=== PATIENT | male | born 1955 | race Caucasian/White ===

== ENCOUNTER → 2017-12-17 | Outpatient (CLI) | payer OTHER ==
[~2017-12-17] MED LIST: ASPCH81X PO; FISHOIL PO; GABA-1220 PO; GLUC10007 PO; LEVO88TA3 PO; MULTTAB58 PO; NAPR-22 PO; TAMS0.4C38 PO
--- NOTE | 2017-12-17 15:12 | DIAGNOSTIC IMAGING REPORT ---
R KNEE 4 OR MORE VIEWS CLINICAL HISTORY: R KNEE PAIN pain COMPARISON: None. DISCUSSION: The bones and joint spaces appear intact. There is no evidence of fracture, dislocation or bony disease. There is no evidence for soft tissue swelling. IMPRESSION: Negative study. The above report was generated using voice recognition software. It may contain grammatical, syntax or spelling errors. Electronically signed by: Jackson Joy M.D. 12/17/2017 3:10 PM Dictated Date/Time: 12/17/2017 3:10 PM
== END | disposition home or self-care (01) ==
LOC: C.RAD 14:45
PROVIDERS: ATTEND Physician Assistant
DX: M25.561 Pain in right knee (principal)

== ENCOUNTER → 2017-12-29 | Outpatient (CLI) | payer OTHER | END | disposition home or self-care (01) | LOC: C.LABBC 11:38 | PROVIDERS: ATTEND Orthopaedic Surgery | DX: M25.561 Pain in right knee (principal); M25.461 Effusion, right knee ==

== ENCOUNTER 2021-12-31 10:40 | Observation (INO) ==
[2021-12-31] MEDS ORDERED: BUPIVACAINE 0.5 % 5 MG/1 ML MPF 30ML VIAL INFIL ONE (11:09)
[2021-12-31] MEDS ORDERED: cephALEXin 250 MG CAP PO STA (11:09)
--- NOTE | 2021-12-31 11:15 | Emergency Department Note ---
History of Present Illness General Chief complaint: Laceration/Cut (Suture/Dermabond) Stated complaint: CUT ON HAND/FINGERS Time Seen by Provider: 12/31/21 11:01 History of Present Illness Maximum Pain Intensity: 7 This is a [id number] 66-year-old male who presents to the emergency department with a wound to the right little finger that occurred prior to arrival. He was using a log processor when a large log dropped onto the stand, bounced towards his hand and hit his hand into the splitting part of the processor. It was not severely crushed but did hit pretty hard. He is able to bend the finger but felt a pop when flexing the finger. Tetanus shot was updated in 2019 Not immunocompromised. Denies any numbness in the finger. Home Medications Medication Instructions Recorded Confirmed Type gabapentin 400 mg capsule 400 mg PO TID 01/23/18 03/28/19 History glucosamine sulfate 500 mg tablet 500 mg PO BID 01/23/18 03/28/19 History (Glucosamine) levothyroxine 88 mcg capsule 88 mcg PO QAM 01/23/18 03/28/19 History tamsulosin 0.4 mg capsule 0.4 mg PO QAM 01/23/18 03/28/19 History vitamins A,C,Y-fshh-rmnwei 2,148 1 tab PO DAILY 01/23/18 03/28/19 History mcg-113 mg-45 mg-17.4 mg tablet (PreserVision AREDS) tramadol 50 mg tablet 50 mg PO Q6H PRN pain #30 tabs 01/31/18 03/28/19 Rx aspirin 81 mg chewable tablet 81 mg PO QAM 03/06/19 03/28/19 History duloxetine 60 mg capsule,delayed 60 mg PO DAILY 03/28/19 03/28/19 History release (Cymbalta) hydrocodone 5 mg-acetaminophen 325 1 tab PO Q4H PRN pain #5 tabs 03/28/19 Rx mg tablet Allergies Allergy/AdvReac Type Severity Reaction Status Date / Time ioversol Allergy Severe ANAPHYLAXIS Verified 03/28/19 06:33 constrast dye Allergy Unknown ANAPHYLAXIS Uncoded 03/28/19 06:33 Past Med/Surg History Medical History BPH (benign prostatic hyperplasia) Hx of skin cancer, basal cell Hypothyroidism Neck pain Osteoarthritis Peripheral neuropathy bilateral feet Surgical History History of arthroscopy RT SHOULDER REPAIR History of colonoscopy History of left knee surgery Hx of meniscectomy of right knee Status post Mohs surgery Family History Father Family history of diabetes mellitus FHx: lung cancer Social History Smoking Status: Never smoker Second Hand Exposure: No; Hx Alcohol Use: No Hx Substance Use: No Preferred Language: Turkish Communication Ability: Effective 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 and A total of 6 systems reviewed and were otherwise negative Physical Exam Vital Signs Vital Signs - 24 hr 12/31/21 10:46 12/31/21 12:40 12/31/21 14:15 Temperature 36.5 C Temperature Source Temporal Artery Scan Pulse Rate 78 Pulse Rate [Apical] Pulse Rate [Finger] 59 L 55 L Pulse Rhythm [Apical] Pulse Rhythm [Finger] Pulse Strength [Apical] Pulse Strength [Finger] Respiratory Rate 20 12 14 Respiratory Effort / Characteristics Non-Labored Respiratory Depth Normal Respiratory Pattern Blood Pressure 136/76 Blood Pressure [Left Arm] 137/81 155/85 H Blood Pressure Mean 96 Blood Pressure Mean [Left Arm] 99 108 Blood Pressure Position [Left Arm] Pulse Oximetry 96 98 99 Oxygen Delivery Method Room Air Room Air Room Air Oxygen Flow Rate Sepsis Recent Fever Within 48 Hours No Sepsis New/Unexplained Change in Mental Status N/A Sepsis Action Taken by Nursing No Action Required 12/31/21 15:02 12/31/21 18:16 Temperature 36.5 C 36.4 C L Temperature Source Oral Temporal Artery Scan Pulse Rate Pulse Rate [Apical] 58 L Pulse Rate [Finger] 56 L Pulse Rhythm [Apical] Regular Pulse Rhythm [Finger] Regular Pulse Strength [Apical] Normal Pulse Strength [Finger] Normal Respiratory Rate 18 20 Respiratory Effort / Characteristics Non-Labored Spontaneous Non-Labored Spontaneous Respiratory Depth Normal Normal Respiratory Pattern Regular Regular Blood Pressure Blood Pressure [Left Arm] 154/90 H 112/70 Blood Pressure Mean Blood Pressure Mean [Left Arm] 111 84 Blood Pressure Position [Left Arm] Sitting Lying Pulse Oximetry 99 96 Oxygen Delivery Method Room Air Oxymask Oxygen Flow Rate 5 Sepsis Recent Fever Within 48 Hours Sepsis New/Unexplained Change in Mental Status Sepsis Action Taken by Nursing CONSTITUTIONAL: Well developed, well nourished, in no acute distress. HEAD: Normocephalic, atraumatic. EYES: Extraocular movements intact, conjunctival normal NECK: Full active range of motion. RESPIRATORY: Breathing unlabored and symmetric. CARDIOVASCULAR: Radial pulses 2+ bilaterally MUSCULOSKELETAL: Right little finger: Extensive laceration over the dorsum of the finger specifically within the middle phalanx region. Extensor tendon is lacerated. There is crepitus appreciated within the middle phalanx concerning for fracture. There is slight deformity in this region. Patient unable to extend the finger. SKIN: [place], warm, dry. Capillary refill less than 2 seconds in right little finger NEUROLOGIC: Alert and oriented x 3. No acute motor or sensory deficits in bilateral little fingers to light touch. PSYCHIATRIC: Appropriate. Normal affect. Course Administered Medications Aspirin (Aspirin 81 Mg Chew) 81 mg PO QAM [facility] Stop: 01/31/22 08:59 Last Admin: 01/01/22 07:41 Dose: Not Given Documented By: ANNETTE Duloxetine HCl (Duloxetine Hcl 60 Mg Cap) 60 mg PO DAILY [facility] Stop: 01/31/22 08:59 Last Admin: 01/01/22 07:40 Dose: Not Given Documented By: ANNETTE Gabapentin (Gabapentin 400 Mg Cap) 400 mg PO TID [facility] Stop: 01/30/22 20:59 Last Admin: 01/01/22 07:38 Dose: 400 mg Documented By: Admin: 12/31/21 21:32 Dose: 400 mg Documented By: LEO Glucosamine Sulfate (Glucosamine Sulfate 500 Mg Cap) 500 mg PO BID [facility] Stop: 01/30/22 20:59 Last Admin: 01/01/22 07:40 Dose: Not Given Documented By: Admin: 12/31/21 21:32 Dose: 500 mg Documented By: LEO Cefazolin Sodium (Ancef 2000mg) 2,000 mg in 15 mls @ 3.75 mls/min IV Q8H [facility]; Protocol Stop: 01/01/22 21:29 Last Admin: 01/01/22 06:09 Dose: 3.75 mls/min Documented By: Admin: 12/31/21 21:31 Dose: 3.75 mls/min Documented By: LEO Levothyroxine Sodium (Levothyroxine Sodium 88 Mcg Tablet) 88 mcg PO DAILYBB MARIA LUISA Stop: 01/31/22 06:29 Last Admin: 01/01/22 06:10 Dose: 88 mcg Documented By: LEO Multivitamins/Minerals (Cerovite Adv Formula Tab) 1 tab PO DAILY MARIA LUISA Stop: 01/31/22 08:59 Last Admin: 01/01/22 07:38 Dose: 1 tab Documented By: ANNETTE Tamsulosin HCl (Tamsulosin Hcl 0.4 Mg Cap) 0.4 mg PO QAM [facility] Stop: 01/31/22 08:59 Last Admin: 01/01/22 07:39 Dose: 0.4 mg Documented By: ANNETTE Tramadol HCl (Tramadol Hcl 50 Mg Tablet) 50 mg PO Q6H PRN PRN Reason: pain Stop: 01/30/22 18:24 Last Admin: 01/01/22 06:09 Dose: 50 mg Documented By: LEO Discontinued Medications Bacitracin (Bacitracin Oint 15 Gm Tube) Confirm Administered Dose 45 appln .ROUTE .STK-MED ONE Stop: 12/31/21 17:54 Last Admin: 12/31/21 17:59 Dose: 45 appln Documented By: MISA Bupivacaine HCl (Bupivacaine 0.5 % 5 Mg/1 Ml Mpf 30ml Vial) 30 ml INFIL NOW ONE Stop: 12/31/21 11:10 Last Admin: 12/31/21 11:14 Dose: 30 ml Documented By: [id number] Cephalexin HCl (Cephalexin 250 Mg Cap) 500 mg PO NOW STA Stop: 12/31/21 11:10 Last Admin: 12/31/21 11:14 Dose: 500 mg Documented By: ALFRED Diphtheria/Pertussis/Tetanus Vacc (Diphtheria/Tetanus/Pertussis 0.5 Ml Syr/Vial) 0.5 ml IM .ONCE ONE Stop: 12/31/21 12:51 Last Admin: 12/31/21 13:14 Dose: Not Given Documented By: ALFRED Cefazolin Sodium (Ancef 2000mg) 2,000 mg in 15 mls @ 3.75 mls/min IV NOW STA Stop: 12/31/21 12:53 Last Admin: 12/31/21 13:08 Dose: 3.75 mls/min Documented By: ALRFED Lidocaine/Epinephrine (Lidocaine 1%/Epinephrine 1:100,000 50 Ml Vial) Confirm Administered Dose 50 ml .ROUTE .STK-MED ONE Stop: 12/31/21 16:23 Last Admin: 12/31/21 17:59 Dose: 9 ml Documented By: MISA Medical Decision Making Differential Diagnosis Fracture, dislocation, subluxation, laceration, foreign body, tendon injury, neurovascular injury, among other pathology Medical Records Attestation: I reviewed the patient's medical records. Laboratory Data Result diagrams: 12/31/21 13:00 12/31/21 13:00 Lab Results 12/31/21 12/31/21 12/31/21 Range/Units 13:00 13:00 13:00 WBC 7.22 (4.8-10.8) K/ul RBC 4.63 (4.63-6.08) M/uL Hgb 13.7 L (14.0-18.0) g/dl Hct 41.0 (40.1-51.0) % MCV 88.6 (80.0-100.0) fL MCH 29.6 (25.0-34.0) pg MCHC 33.4 (32.0-36.0) g/dL RDW Std Deviation 40.6 (36.4-46.3) fL RDW Coeff of Narda 12.5 (11.5-14.5) % Plt Count 181 (130-400) K/uL MPV 9.4 (9.4-12.4) fL Immature Gran % (Auto) 0.3 % Neut % (Auto) 76.8 % Lymph % (Auto) 15.4 % [place] % (Auto) 6.2 % Eos % (Auto) 0.7 % Baso % (Auto) 0.6 % Neut # (Auto) 5.55 (1.4-6.5) K/uL Lymph # (Auto) 1.11 L (1.2-3.4) K/uL [place] # (Auto) 0.45 (0.24-0.82) K/uL Eos # (Auto) 0.05 (0-0.50) K/uL Baso # (Auto) 0.04 (0-0.2) K/uL Immature Gran # (Auto) 0.02 (0.00-0.02) K/uL Sodium 141 (136-145) mmol/L Potassium 4.2 (3.5-5.1) mmol/L Chloride 108 H (98-107) mmol/L Carbon Dioxide 26 (21-32) mmol/L Anion Gap 7 (3-11) BUN 19 (6-23) mg/dl Creatinine 0.86 (0.6-1.4) mg/dl Est Cr Clr Drug Dosing 87.6 ml/min Est GFR ( Amer) 103.3 ml/min Est GFR (Non-Af Amer) 89.1 ml/min BUN/Creatinine Ratio 22.1 H (10-20) Glucose 91 (70-99(Fasting)) mg/dl Calcium 9.3 (8.5-10.1) mg/dl SARS-CoV-2, RNA, NAAT NEGATIVE (NEGATIVE) Imaging Data Attestation: I personally reviewed and interpreted this imaging study as follows: My Impression: I agree with the radiologist's interpretation Radiologist's Impression: Finger X-Ray 12/31/21 00:00 FL finger RT 2V CLINICAL HISTORY: RIGHT 5TH digit fracture with internal fixation COMPARISON STUDY: 12/31/2021. FLUOROSCOPY TIME: . FINDINGS: 2 fluoroscopic spot images of the right fifth finger demonstrates internal fixation of the middle phalangeal fracture with 2 pins. Alignment appears near-anatomic. IMPRESSION: Fluoroscopic assistance provided for internal fixation of the right fifth finger middle phalanx fracture. ACT 112: Negative or not required by law. Electronically signed by: Marcus Coello M.D. 12/31/2021 7:43 PM Finger X-Ray 12/31/21 11:09 XR finger(s) RT min 2V CLINICAL HISTORY: little finger injury with laceration TECHNIQUE: 3 views of the right fifth digit were obtained. Comparison: Comparison is made to right hand radiographs 01/15/2019 FINDINGS: Comminuted fracture of the middle phalanx of the fifth digit. There is a linear radiodensity in the fourth digit which is unchanged from prior exam, may represent chronic foreign body. No new foreign bodies are seen. Soft tissue swelling is seen about the digit. IMPRESSION: Comminuted fractures of the middle phalanx of the fifth digit with associated soft tissue swelling. ACT 112: Negative or not required by law. Electronically signed by: Mani Bojorquez M.D. 12/31/2021 12:13 PM MDM Narrative 66-year-old male presents with a significant wound to the right little finger that occurred while using a firewood processor as described above. Physical exam reveals an extensive laceration over the dorsum of the little finger, extensor tendon is lacerated, crepitus concerning for fracture. Sensat ion is intact to light touch. Tdap confirmed updated in 2019. Patient initially given a dose of Tylenol and oral Keflex. X-ray of the little finger demonstrates a comminuted fracture of the middle ph alanx. This is an open fracture. Case was discussed with Dr. Mccall (orthopedics) who evaluated the patient at bedside and will take the patient to the OR for surgical repair. Basic labs were obtained, IV Ancef was administered. Labs overall no acute findings. Patient remained hemodynamically stable in the emergency department until being transferred to the OR. Attending Attestation: Viviane Khan MD independently saw and evaluated this patient and agree with history and physical is otherwise documented by the physician speech assistant. See their note for full details. Patient resting in bed with bandaging on finger pain now controlled. Given xr eval by ortho for further eval and clean out with open wound. Impression & Plan Open fracture of middle phalanx of left little finger, Extensor tendon laceration of finger with open wound Discharge Plan Visit Data Chief Complaint: Laceration/Cut (Suture/Dermabond) Stated Complaint: CUT ON HAND/FINGERS ED Provider: Elio Khan ED Midlevel Provider: Kvng Richey Discharge Problem: Open fracture of middle phalanx of left little finger, Extensor tendon la ceration of finger with open wound Patient Disposition: Admitted As Inpatient Discharge Instructions Interventions: ED Discharge Assessment Last Done: 12/31/21 14:41
--- NOTE | 2021-12-31 12:14 | XRay Report ---
XR finger(s) RT min 2V CLINICAL HISTORY: little finger injury with laceration TECHNIQUE: 3 views of the right fifth digit were obtained. Comparison: Comparison is made to right hand radiographs 01/15/2019 FINDINGS: Comminuted fracture of the middle phalanx of the fifth digit. There is a linear radiodensity in the f ourth digit which is unchanged from prior exam, may represent chronic foreign body. No new foreign humberto dies are seen. Soft tissue swelling is seen about the digit. IMPRESSION: Comminuted fractures of the middle phalanx of the fifth digit with associated soft tissue swelling. ACT 112: Negative or not required by law. Electronically signed by: Mani Bojorquez M.D. 12/31/2021 12:13 PM
[2021-12-31] MEDS ORDERED: DIPHTHERIA/TETANUS/PERTUSSIS 0.5 ML SYR/VIAL IM ONE (12:50)
[2021-12-31] MEDS ORDERED: ceFAZolin 2000MG 2,000 MG/15 ML SYR IV STA (12:50)
[2021-12-31 13:17] LABS: Basophils # (auto) 0.04 K/uL (0-0.2); Basophils % (auto) 0.6 %; Eosinophils # (auto) 0.05 K/uL (0-0.50); Eosinophils % (auto) 0.7 %; Hemoglobin 13.7 g/dl (14.0-18.0); Immature Granulocytes # (auto) 0.02 K/uL (0.00-0.02); Immature Granulocytes % (auto) 0.3 %; Lymphocytes # (auto) 1.11 K/uL (1.2-3.4); Lymphocytes % (auto) 15.4 %; Mean Corpuscular Hemoglobin 29.6 pg (25.0-34.0); Mean Corpuscular Hgb Conc 33.4 g/dL (32.0-36.0); Mean Corpuscular Volume 88.6 fL (80.0-100.0); Mean Platelet Volume 9.4 fL (9.4-12.4); Monocytes # (auto) 0.45 K/uL (0.24-0.82); Monocytes % (auto) 6.2 %; Neutrophils # (auto) 5.55 K/uL (1.4-6.5); Neutrophils % (auto) 76.8 %; Platelet Count 181 K/uL (130-400); RDW Coefficient of Variation 12.5 % (11.5-14.5); RDW Standard Deviation 40.6 fL (36.4-46.3); Red Blood Count 4.63 M/uL (4.63-6.08); White Blood Count 7.22 K/ul (4.8-10.8)
[2021-12-31 13:44] LABS: BUN Creatinine Ratio 22.1 (10-20); Calcium 9.3 mg/dl (8.5-10.1); Creatinine Clr Calc Pharmacy 87.6 ml/min; Est GFR (African American) 103.3 ml/min; Est GFR (Non-African American) 89.1 ml/min; Potassium 4.2 mmol/L (3.5-5.1)
--- NOTE | 2021-12-31 14:01 | History & Physical Report ---
Date of Service December 31, 2021 Assessment & Plan (1) Open fracture of middle phalanx of left little finger: Plan: Findings are discussed. He has an open fracture of the finger. Grade 2 by size. It has been almost 4 hours since injury. He has received antibiotics. His tetanus is up-to-date. We talked about options and I recommended irrigation debridement and stabilization of the fracture and repair of extensor tight tendon if necessary. This would be followed by IV antibiotics and discharged home. Pins will stay in place 3 to 6 weeks. We talked about risks benefits rehab recovery. There is a risk of infection and a significant risk of stiffness. I also mentioned to him the possibility of an amputation as a primary treatment which I think is not necessary. Continue NPO. We will get him into the OR soon as possible. Present on Admission?: Yes History of Present Illness Primary Care Provider: Edward Montes is 66 years old. He was splitting wood. A log rolled over and pinched his finger against the splitting apparatus. This happened about 10 AM. Right little finger. He came to the ER. He was diagnosed with a open fracture and I was consulted to see him. I ordered a dose of Ancef. His tetanus is within the last 5 years.No other injury noted. No prior history of injury to the same hand. Allergies Allergy/AdvReac Type Severity Reaction Status Date / Time ioversol Allergy Severe ANAPHYLAXIS Verified 03/28/19 06:33 constrast dye Allergy Unknown ANAPHYLAXIS Uncoded 03/28/19 06:33 Home Medications Medication Instructions Recorded Confirmed Type gabapentin 400 mg capsule 400 mg PO TID 01/23/18 03/28/19 History glucosamine sulfate 500 mg tablet 500 mg PO BID 01/23/18 03/28/19 History (Glucosamine) levothyroxine 88 mcg capsule 88 mcg PO QAM 01/23/18 03/28/19 History tamsulosin 0.4 mg capsule 0.4 mg PO QAM 01/23/18 03/28/19 History vitamins A,C,M-btln-ptdgsr 2,148 1 tab PO DAILY 01/23/18 03/28/19 History mcg-113 mg-45 mg-17.4 mg tablet (PreserVision AREDS) tramadol 50 mg tablet 50 mg PO Q6H PRN pain #30 tabs 09/19/18 11/14/19 Rx aspirin 81 mg chewable tablet 81 mg PO QAM 03/06/19 03/28/19 History duloxetine 60 mg capsule,delayed 60 mg PO DAILY 03/28/19 03/28/19 History release (Cymbalta) hydrocodone 5 mg-acetaminophen 325 1 tab PO Q4H PRN pain #5 tabs 03/28/19 Rx mg tablet Past Med/Surg History Medical History (Updated 12/31/21 @ 13:51 by Cabrera Thao) BPH (benign prostatic hyperplasia) Hx of skin cancer, basal cell Hypothyroidism Neck pain Osteoarthritis Peripheral neuropathy bilateral feet Surgical History History of arthroscopy RT SHOULDER REPAIR History of colonoscopy History of left knee surgery Hx of meniscectomy of right knee Status post Mohs surgery Family History Father Family history of diabetes mellitus FHx: lung cancer Social History Smoking Status: Never smoker Second Hand Exposure: No; Hx Alcohol Use: No Hx Substance Use: No Preferred Language: Latvian Communication Ability: Effective 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 He does not have cancer or diabetes. Physical Exam Physical Exam: Heart is regular in rate and rhythm without murmur. The chest is clear to auscultation bilaterally. Examination of the right little finger reveals a 3 to 4 cm laceration which begins dorsally over the middle phalanx and proceeds distally and ulnarly as well as palmarly to that side of the digit. The finger is deformed there is exposed bone and tendon with blood clot. He has been previously anesthetized but reports that his sensation was intact prior to the anesthesia. Capillary refills less than 2 seconds. He cannot extend the digit but it appears to have intact long flexor function. Flexor superficialis function appears to be intact. The finger is unstable. Results & Data Results & Data ([facility]) Vital Signs (Past 12 Hours) Vital Signs Temp Pulse Pulse Resp BP BP Pulse Ox 12/31/21 12:40 59 L 12 137/81 98 12/31/21 10:46 36.5 C 78 20 136/76 96 O2 Del Method 12/31/21 12:40 Room Air 12/31/21 10:46 Room Air Laboratory Results Laboratory Results WBC 7.22 K/ul (4.8-10.8) 12/31/21 13:00 RBC 4.63 M/uL (4.63-6.08) 12/31/21 13:00 Hgb 13.7 g/dl (14.0-18.0) L 12/31/21 13:00 Hct 41.0 % (40.1-51.0) 12/31/21 13:00 MCV 88.6 fL (80.0-100.0) 12/31/21 13:00 MCH 29.6 pg (25.0-34.0) 12/31/21 13:00 MCHC 33.4 g/dL (32.0-36.0) 12/31/21 13:00 RDW Std Deviation 40.6 fL (36.4-46.3) 12/31/21 13:00 RDW Coeff of Narda 12.5 % (11.5-14.5) 12/31/21 13:00 Plt Count 181 K/uL (130-400) 12/31/21 13:00 MPV 9.4 fL (9.4-12.4) 12/31/21 13:00 Immature Gran % (Auto) 0.3 % 12/31/21 13:00 Neut % (Auto) 76.8 % 12/31/21 13:00 Lymph % (Auto) 15.4 % 12/31/21 13:00 [place] % (Auto) 6.2 % 12/31/21 13:00 Eos % (Auto) 0.7 % 12/31/21 13:00 Baso % (Auto) 0.6 % 12/31/21 13:00 Neut # (Auto) 5.55 K/uL (1.4-6.5) 12/31/21 13:00 Lymph # (Auto) 1.11 K/uL (1.2-3.4) L 12/31/21 13:00 [place] # (Auto) 0.45 K/uL (0.24-0.82) 12/31/21 13:00 Eos # (Auto) 0.05 K/uL (0-0.50) 12/31/21 13:00 Baso # (Auto) 0.04 K/uL (0-0.2) 12/31/21 13:00 Immature Gran # (Auto) 0.02 K/uL (0.00-0.02) 12/31/21 13:00 Sodium 141 mmol/L (136-145) 12/31/21 13:00 Potassium 4.2 mmol/L (3.5-5.1) 12/31/21 13:00 Chloride 108 mmol/L (98-107) H 12/31/21 13:00 Carbon Dioxide 26 mmol/L (21-32) 12/31/21 13:00 Anion Gap 7 (3-11) 12/31/21 13:00 BUN 19 mg/dl (6-23) 12/31/21 13:00 Creatinine 0.86 mg/dl (0.6-1.4) 12/31/21 13:00 Est Cr Clr Drug Dosing 87.6 ml/min 12/31/21 13:00 Est GFR ( Amer) 103.3 ml/min 12/31/21 13:00 Est GFR (Non-Af Amer) 89.1 ml/min 12/31/21 13:00 BUN/Creatinine Ratio 22.1 (10-20) H 12/31/21 13:00 Glucose 91 mg/dl (70-99(Fasting)) 12/31/21 13:00 Calcium 9.3 mg/dl (8.5-10.1) 12/31/21 13:00 SARS-CoV-2, RNA, NAAT NEGATIVE (NEGATIVE) 12/31/21 13:00 Impressions Finger X-Ray 12/31/21 11:09 XR finger(s) RT min 2V CLINICAL HISTORY: little finger injury with laceration TECHNIQUE: 3 views of the right fifth digit were obtained. Comparison: Comparison is made to right hand radiographs 01/15/2019 FINDINGS: Comminuted fracture of the middle phalanx of the fifth digit. There is a linear radiodensity in the fourth digit which is unchanged from prior exam, may represent chronic foreign body. No new foreign bodies are seen. Soft tissue sw elling is seen about the digit. IMPRESSION: Comminuted fractures of the middle phalanx of the fifth digit with associated soft tissue swelling. ACT 112: Negative or not required by law. Electronically signed by: Mani Bojorquez M.D. 12/31/2021 12:13 PM Code Status & VTE Plan VTE Prophylaxis Plan Reason for no VTE drug order: Treatment not indicated
--- NOTE | 2021-12-31 14:40 | Electrocardiogram Report ---
Test Reason : Blood Pressure : / mmHG Vent. Rate : 054 BPM Atrial Rate : 054 BPM P-R Int : 122 ms QRS Dur : 096 ms QT Int : 458 ms P-R-T Axes : 034 -09 009 degrees QTc Int : 434 ms Sinus bradycardia Incomplete right bundle branch block Borderline ECG When compared with ECG of 22-JAN-2018 10:31, Incomplete right bundle branch block is now Present Confirmed by Federico Raman ([id number]) on 12/31/2021 2:39:56 PM Referred By: REFERRED SELF Confirmed By:Federico Raman
--- NOTE | 2021-12-31 15:14 | Anesthesiology Consultation ---
Date of Service December 31, 2021 Assessment & Plan (1) Encounter for pre-operative examination: Chart Review Chart Review: Acceptable Risk for Surgery Consults Requested none ASA ASA2E Proposed Anesthesia Anesthesia Type: MAC Risk / Benefits Reviewed With: PT / POA / Parent / Guardian, Accepts Plan and Informed Consent Obtained History Surgery Operation Date: 12/31/21 16:35 Proposed Procedures p Incision and Drainage Right Hand Lupe Mccall MD s Pinning of Right Hand Lupe Mccall MD Height/Weight Height: 5 ft 11 in Weight: 86.3 kg Allergies Allergy/AdvReac Type Severity Reaction Status Date / Time ioversol Allergy Severe ANAPHYLAXIS Verified 03/28/19 06:33 constrast dye Allergy Unknown ANAPHYLAXIS Uncoded 03/28/19 06:33 Medications Home Medications Medication Instructions Recorded Confirmed Last Taken gabapentin 400 mg capsule 400 mg PO TID 01/23/18 03/28/19 03/27/19 glucosamine sulfate 500 mg tablet 500 mg PO BID 01/23/18 03/28/19 03/27/19 (Glucosamine) levothyroxine 88 mcg capsule 88 mcg PO QAM 01/23/18 03/28/19 03/28/19 01:30 tamsulosin 0.4 mg capsule 0.4 mg PO QAM 01/23/18 03/28/19 03/28/19 05:00 vitamins A,C,P-nrms-mdklpw 2,148 1 tab PO DAILY 01/23/18 03/28/19 03/27/19 mcg-113 mg-45 mg-17.4 mg tablet (PreserVision AREDS) tramadol 50 mg tablet 50 mg PO Q6H PRN pain #30 tabs 01/31/18 03/28/19 Unknown aspirin 81 mg chewable tablet 81 mg PO QAM 03/06/19 03/28/19 03/26/19 duloxetine 60 mg capsule,delayed 60 mg PO DAILY 03/28/19 03/28/19 03/27/19 release (Cymbalta) hydrocodone 5 mg-acetaminophen 325 1 tab PO Q4H PRN pain #5 tabs 03/28/19 Unknown mg tablet NPO Date Last Intake of Fluids: 12/31/21 Time Last Intake of Fluids: 07:00 Date Last Intake of Solids: 12/31/21 Time Last Intake of Solids: 00:00 Past Medical History Medical History BPH (benign prostatic hyperplasia) Hx of skin cancer, basal cell Hypothyroidism Neck pain Osteoarthritis Peripheral neuropathy bilateral feet Exercise / Class Metabolic Activity II 4-5 Yardwork/Stairs/Walk up hill Past Family History Family History Father Family history of diabetes mellitus FHx: lung cancer Past Surgical History Surgical History History of arthroscopy RT SHOULDER REPAIR History of colonoscopy History of left knee surgery Hx of meniscectomy of right knee Status post Mohs surgery Past Anesthesia History No Hx of Anesthesia Complications and No Family Hx of Anesthesia Complications History of PONV No Hx of PONV and No Hx of Motion Sickness Social History Smoking Status: Never smoker Hx Alcohol Use: No Hx Substance Use: No substance use type: does not use Physical Exam Vital Signs Last Vital Signs Temp 97.7 F 12/31/21 10:46 Pulse 55 L 12/31/21 14:15 Resp 14 12/31/21 14:15 BP 155/85 H 12/31/21 14:15 Pulse Ox 99 12/31/21 14:15 O2 Del Method 12/31/21 14:15 ENMT Mouth: no dentition abnormality Thyromental Distance: > or= 3.5 Finger Breadths Mallampati Class: II Neck normal visual inspection Respiratory normal respiratory effort Auscultation: lungs clear to auscultation bilaterally Cardiovascular Rate/Rhythm: regular rate and regular rhythm Testing Laboratory Results 12/31/21 13:00 12/31/21 13:00 Electrocardiogram Date: 12/31/21 Findings: + SB @ (54 bpm) Chest X-Ray Incomplete RBBB
[2021-12-31] MEDS ORDERED: fentaNYL citrate 100 MCG/2 ML VIAL ONE (16:09)
[2021-12-31] MEDS ORDERED: PROPOFOL IV EMULSION 10 MG/ML 20 ML VIAL IV ONE ×2 (16:09→16:56)
[2021-12-31] MEDS ORDERED: ONDANSETRON INJ 2 MG/ML 2 ML VIAL ONE (16:09)
[2021-12-31] MEDS ORDERED: MIDAZOLAM HCL 1 MG/ML 2ML VIAL ONE (16:09)
[2021-12-31] MEDS ORDERED: LIDOCAINE 2% MPF LOCAL 5 ML VIAL INFIL ONE (16:09)
[2021-12-31] MEDS ORDERED: LIDOCAINE 1%/EPINEPHRINE 1:100,000 50 ML VIAL ONE (16:22)
[2021-12-31] MEDS ORDERED: ePHEDrine sulfate 50 MG/ML SYR ONE (16:56)
[2021-12-31] MEDS ORDERED: BACITRACIN OINT 15 GM TUBE ONE (17:53)
[2021-12-31] MEDS ORDERED: oxyCODONE/ACETAMINOPHEN 5mg/325mg TAB PO PRN (18:18)
[2021-12-31] MEDS ORDERED: ONDANSETRON INJ 2 MG/ML 2 ML VIAL IV PRN (18:18)
--- NOTE | 2021-12-31 18:18 | Operative Report ---
Post Operative Report Pre & Post Diagnosis Operation Date: 12/31/21 16:35 Pre-Op Diagnosis: Grade 2 open fracture of right little finger middle phalynx extensor tendon laceration Post-Op Diagnosis: Grade 2 open fracture of right little finger middle phalynx extensor tendon laceration I identified the patient and participated in the time-out.: Yes Procedure Operation Date: 12/31/21 16:35 Actual Procedures p Incision and Drainage Right Hand Little Finger(Right) - Rupert Mccall MD s Pinning of Right Hand Little Finger(Right) - Rupert Mccall MD Surgeon Rupert Mccall MD Engineering Scientist Elaina Solomon PA-C; Annalise Clements PA-C Estimated Blood Loss 1 Findings Consistent with Post-Op Diagnosis Specimens none Description of Procedure I was present for a majority of the case assisting with wound retraction, wound closure, dressing and splint application. No fellow present. Please see Dr. Mccall procedure note for specifics of the case. I attest to the content of the Intraoperative Record and any orders documented therein. Any exceptions are noted below.
--- NOTE | 2021-12-31 18:19 | Anesthesiology Progress Note ---
Date of Service December 31, 2021 Anesthesia Post Procedure Vital Signs Vital Signs: Temp Pulse Pulse Resp BP BP Pulse Ox 12/31/21 15:02 97.7 F 56 L 18 154/90 H 99 12/31/21 14:15 55 L 14 155/85 H 99 12/31/21 12:40 59 L 12 137/81 98 12/31/21 10:46 97.7 F 78 20 136/76 96 O2 Del Method 12/31/21 15:02 Room Air 12/31/21 14:15 Room Air 12/31/21 12:40 Room Air 12/31/21 10:46 Room Air Pain Intensity Right 5th Digit: Pain Intensity: 5 Transfer of Care Handoff Completed per policy Notes Mental Status: alert / awake / arousable and participated in evaluation Patient Amnestic to Procedure: Yes Nausea / Vomiting: adequately controlled Pain: adequately controlled Airway Patency, RR, SpO2: stable & adequate BP & HR: stable & adequate Hydration State: stable & adequate Anesthetic Complications: no major complications apparent and Pt Satisfied with anesthetic care
[2021-12-31] MEDS ORDERED: SODIUM CHLORIDE 0.9% 1000ML 1,000 ML IV SCH (18:30)
--- NOTE | 2021-12-31 18:32 | Operative Report ---
Post Operative Report Pre & Post Diagnosis Operation Date: 12/31/21 16:35 Pre-Op Diagnosis: Grade 2 open fracture of right little finger middle phalynx extensor tendon laceration Post-Op Diagnosis: Grade 2 open fracture of right little finger middle phalynx extensor tendon laceration I identified the patient and participated in the time-out.: Yes Procedure Operation Date: 12/31/21 16:35 Actual Procedures p Incision and Drainage Right Hand Little Finger(Right) - Rupert Mccall MD s Pinning of Right Hand Little Finger(Right) - Rupert Mccall MD Surgeon Rupert Mccall MD Sap Hana Architect Elaina Solomon PA-C; Annalise Clements PA-C Estimated Blood Loss 1 Findings Consistent with Post-Op Diagnosis Specimens none Anesthesia Type MAC Regional Complications none Disposition Accompanied Patient To Recovery: No Disposition: Recovery Room Indications Patient is 66 years old. He injured his right little finger when it was crushed by a log against a log splitter when the log fell. He has a grade 2 open fracture of the middle phalanx on the right little finger with comminution. The extensor tendon is likely damaged as well. I recommended I&D repair stabilization. Description of Procedure Informed consent obtained. Patient identified. He identified the operative site as the right little finger. I marked with my initials. A preoperative surgical timeout was performed. Preop dose of IV antibiotics given. He was taken to the operating room positioned supine on the OR table with the right arm on a hand table. He received a preop dose of intravenous antibiotics. A tourniquet was applied to the right arm but not inflated. The finger was prescribed with Betadine. The fingernails were cleaned as best as possible and then the arm up to the elbow was prepped with Betadine. 1% lidocaine with epinephrine with epinephrine was injected for digital block. DVT prophylaxis with mechanical devices intraoperatively and postop early mobility. There was a laceration on the palmar aspect of the finger mid radial line palmarly about 1 to 1-1/2 cm long this was longitudinal there was a intact 1 cm skin bridge and then the other laceration began. This was all irrigated thoroughly with 2 L of sterile saline including the fracture site. There were a few specks of dirt which were removed. The longitudinal laceration was repaired with 204 0 nylon sutures. The main laceration began on the palmar surface 1 around ulnarly at the level of the DIP joint and then Jeferson coursed proximally to the midportion of the phalanx. This was about 4 cm in length. There was some epidermal loss over 1-1/2 x 1 cm along the wound margin distally. Immediately upon opening up the wound it was noted there were 2 free spicules of bone which came from the radial aspect of the proximal fracture fragment. The bone was copiously irrigated as mentioned previously and debrided. I then took a point 03 5 inch K wire. Cut in half. I passed 1 portion from proximal radial to ulnar distal through the distal fragment. And another 1 distal ulnar to proximal radial through the proximal fracture fragment. I then was able to realign the fracture there was some volar comminution present as well on the ulnar side. I was able to get good dorsal and volar apposition. The pins were then passed into the opposite fragment and both pins were then brought out distally. Fluoroscopic guidance was utilized and the pins were parked just inside the body of the proximal portion of the middle phalanx. The flexor tendon was noted and found to be intact. There was a comminution of the proximal fragment volarly. This was in situ and had micromotion. A thin small fragment which would be difficult to fixate. I left it in situ and it remained there throughout the procedure. The comminution of the distal fragment was left in as is as it had soft tissue attachments whereas the other comminuted pieces did not have soft tissue attachment. The fracture was well reduced and stable. There was no rotation or angulation and the radiograph showed good positioning of the fracture and the hardware. The extensor tendon was macerated. Frayed like a horses tail on either side. The distal portion was just underneath the laceration. There was a 2 to 3 mm gap in the tendon. A direct repair was likely not possible given the tissue quality. I then went ahead and took some big bites incorporating the tendon tissue into the skin both proximally and distally x3 and repaired at that way as best as possible. The remainder of the laceration was repaired with interrupted 4-0 nylon sutures in a simple fashion. The pins were cut outside the skin and Jurgan balls were applied. Antibiotic ointment Xeroform gauze and a AlumaFoam finger splint. Patient wake from anesthesia without difficulty taken to the recovery room stable condition. He received sedation during the procedure as well as local. Counts were correct. Blood loss was 1 cc. At the conclusion the operation spoke with patient's informed her of findings. Postop instructions were given. Plan is to admit to the hospital and administer intravenous antibiotics Ancef 1 to 2 g IV every 8 x24 hours. Pain control. Thereafter will reassess and consider discharge. I attest to the content of the Intraoperative Record and any orders documented therein. Any exceptions are noted below.
--- NOTE | 2021-12-31 19:44 | Fluoroscopy Report ---
FL finger RT 2V CLINICAL HISTORY: RIGHT 5TH digit fracture with internal fixation COMPARISON STUDY: 12/31/2021. FLUOROSCOPY TIME: . FINDINGS: 2 fluoroscopic spot images of the right fifth finger demonstrates internal fixation of the middle phalangeal fracture with 2 pins. Alignment appears near-anatomic. IMPRESSION: Fluoroscopic assistance provided for internal fixation of the right fifth finger middle p halanx fracture. ACT 112: Negative or not required by law. Electronically signed by: Marcus Coello M.D. 12/31/2021 7:43 PM
[2021-12-31] MEDS ORDERED: Nursing to Pharmacy Communication SCH (21:15)
[2021-12-31] MEDS: ceFAZolin 2000MG 2,000 MG/15 ML SYR IV SCH (21:31)
[2021-12-31] MEDS: GABAPENTIN 400 MG CAP PO SCH (21:32)
[2021-12-31] MEDS: GLUCOSAMINE SULFATE 500 MG CAP PO SCH (21:32)
[2022-01-01] MEDS: traMADol HCL 50 MG TABLET PO PRN ×2 (06:09→12:11)
[2022-01-01] MEDS: ceFAZolin 2000MG 2,000 MG/15 ML SYR IV SCH ×2 (06:09→13:44)
[2022-01-01] MEDS ORDERED: LEVOTHYROXINE SODIUM 88 MCG TABLET PO SCH (06:30)
[2022-01-01] MEDS: GABAPENTIN 400 MG CAP PO SCH ×2 (07:38→13:44)
[2022-01-01] MEDS: GLUCOSAMINE SULFATE 500 MG CAP PO SCH (07:40)
[2022-01-01] MEDS ORDERED: CEROVITE ADV FORMULA TAB PO SCH (09:00)
[2022-01-01] MEDS ORDERED: ASPIRIN 81 MG CHEW PO SCH (09:00)
[2022-01-01] MEDS ORDERED: TAMSULOSIN HCL 0.4 MG CAP PO SCH (09:00)
[2022-01-01] MEDS ORDERED: DULoxetine HCL 60 MG CAP PO SCH (09:00)
--- NOTE | 2022-01-01 14:18 | Discharge Summary (DS) ---
DATE OF ADMISSION: 12/31/2021 DATE OF DISCHARGE: 01/01/2022 ADMISSION DIAGNOSIS: Grade II open fracture of the right little finger middle phalanx. POSTOPERATIVE DIAGNOSIS: Grade II open fracture of the right little finger middle phalanx. PROCEDURE: Open reduction and percutaneous pinning, irrigation and debridement of the right hand tj le finger grade II open fracture. ATTENDING PHYSICIAN AND SURGEON: Rupert Mccall MD BRIEF HISTORY: The patient suffered the aforementioned injury in a wood splitter accident. He had a n open fracture, which was treated with ORIF pinning, I and D on 12/31/2021. He received a preop and a 24-hour course of postoperative IV antibiotics and was discharged home in good condition. He is t o follow up with me on Monday. Call for an appointment. Elevate, ice. Keep clean and dry, cover to bathe. Ultram for pain. If there are any problems with fever, swelling, or any other issues, call the office or go to the ER. For today's visit, pain was well controlled with Ultram. I discussed with him the findings of the godinez rgical procedure. The dressing was clean and dry. Pins were intact. He is afebrile. His vital sig ns are stable. No new labs. Job ID: [id number]
[2022-01-01] MEDS ORDERED: ceFAZolin 2000MG 2,000 MG/15 ML SYR IV SCH (21:00)
== END 2022-01-01 13:50 | disposition home or self-care (01) ==
LOC: ED 10:40 → PACUINP 10:40 → 3N 20:09